=== PATIENT | male | born 1955 | race Caucasian/White ===

== ENCOUNTER 2020-05-29 13:49 | Outpatient (CLI) | payer MEDICARE, SELFPAY ==
--- NOTE | ~2020-05-29 | XR_ITS ---
EXAMINATION: XR chest 2V DATE: 05/29/2020 14:14 INDICATION: Shortness of breath and cough TECHNIQUE: PA and lateral views of the chest are obtained. COMPARISON: 07/01/2019 FINDINGS: There is stable cardiomegaly. Small pleural effusions are present. There is no pneumothorax . There are minimal airspace opacities of the lung bases. There is a questionable nodular density of the left costophrenic angle on the AP view. There is mild thoracic spondylosis. IMPRESSION: 1. Small pleural effusions with bibasilar airspace opacities, likely atelectasis. 2. Stable cardiomegaly. 3. Possible nodule at the left costophrenic angle. Recommend follow-up with nonemergent CT. Reviewed, dictated and finalized at location A. IMPRESSION: 1. Small pleural effusions with bibasilar airspace opacities, likely atelectasi s. 2. Stable cardiomegaly. 3. Possible nodule at the left costophrenic angle. Recommend follow-up with non emergent CT.
[2020-05-29 14:02] LABS: Basophils Absolute Auto 0.04 K/mm3 (0.00-0.10); Basophils Percent Auto 0.5 % (0.0-1.0); Eosinophils Absolute Auto 0.17 K/mm3 (0.02-0.50); Eosinophils Percent Auto 1.9 % (1.0-6.0); Hematocrit 42.2 % (37.0-46.0); Hemoglobin 13.8 g/dL (12.4-15.3); Immature Granulocyte Absolute 0.03 K/mm3 (0.00-0.00); Immature Granulocyte Percent A 0.3 % (0.0-0.0); Lymphocytes Absolute Auto 1.83 K/mm3 (1.10-4.50); Lymphocytes Percent Auto 20.6 % (18.0-42.0); Mean Corpuscular HGB Conc 32.7 g/dL (32.0-36.0); Mean Corpuscular Hemoglobin 29.9 pg (27.0-31.0); Mean Corpuscular Volume 91.3 fL (78.0-102.0); Mean Platelet Volume 10.9 fl (8.7-11.0); Monocytes Absolute Auto 0.98 K/mm3 (0.10-0.90); Neutrophils Absolute Auto 5.8 K/mm3 (1.7-7.2); Neutrophils Percent Auto 65.7 % (50.0-70.0); Platelet Count Result 214 K/mm3 (150-420); Red Blood Count 4.62 M/mm3 (4.70-6.10); Red Cell Distribution Width 12.9 % (11.6-14.4); White Blood Count 8.9 K/mm3 (4.8-10.8)
[2020-05-29 14:28] LABS: Alanine Aminotransferase 25 U/L (16-63); Albumin Level 3.9 g/dL (3.4-5.0); Alkaline Phosphatase 72 U/L (46-116); Anion Gap 8 mmol/L (8-16); Aspartate Amino Transferase 21 U/L (15-37); Bilirubin,Total 0.9 mg/dL (0.00-1.00); Blood Urea Nitrogen 20 mg/dL (7-18); Carbon Dioxide 26 mmol/L (21-32); Chloride 105 mmol/L (98-108); Estimated Glomerular Filt Rate > 60; Glucose 95 mg/dL (70-99); Osmolality Calculated 290 mOsm/kg (285-295); Potassium 4.2 mmol/L (3.5-5.1); Sodium 139 mmol/L (136-145); Total Protein 7.3 g/dL (6.4-8.2)
[2020-05-29 17:45] LABS: BNP 737 pg/mL (0-100)
== END 2020-05-29 13:50 | disposition home or self-care (01) ==
LOC: CHSLAB 13:53
PROVIDERS: PCP Internal Medicine; Visit Provider Internal Medicine
DX: R06.00 Dyspnea, unspecified (principal); R05 Cough
CPT/HCPCS: 36415; 71046; 80053; 83880; 85025

== ENCOUNTER 2020-05-30 13:13 | Outpatient (CLI) | payer MEDICARE, SELFPAY ==
--- NOTE | ~2020-05-30 | CT_ITS ---
EXAMINATION:CT chest w con DATE: 05/30/2020 14:07 INDICATION: Lung nodule. Pleural effusion. Dyspnea. TECHNIQUE: Computed tomography (CT) of the chest was performed with 75 mL Omnipaque 350 intravenous c ontrast. Automated exposure control and iterative reconstruction technique were employed. The dose-le ngth product (DLP) was 177.62 mGy-cm. COMPARISON: Chest 2 views 05/29/2020 FINDINGS: The lungs demonstrate mild atelectasis. There are small pleural effusions, right worse than left. There is no pulmonary embolus. A calcified left hilar lymph nodes consistent with old granulom atous disease. There is left atrial and left ventricular enlargement of the heart. No pericardial eff usion. There is mild thoracic spondylosis. There are old healed left rib fractures. IMPRESSION: 1. Small pleural effusions. 2. Cardiomegaly. 3. Old healed left rib fractures, which correlates with the abnormal chest radiograph finding. Reviewed, dictated and finalized at location A. IMPRESSION: 1. Small pleural effusions. 2. Cardiomegaly. 3. Old healed left rib fractures, which correlates with the abnormal chest radi ograph finding.
== END 2020-05-30 13:14 | disposition home or self-care (01) ==
LOC: CHSIMG 13:15
PROVIDERS: PCP Internal Medicine; Visit Provider Internal Medicine
DX: J90 Pleural effusion, not elsewhere classified (principal); R06.00 Dyspnea, unspecified; R91.8 Other nonspecific abnormal finding of lung field
CPT/HCPCS: 71260; Q9965

== ENCOUNTER 2020-05-31 10:17 | Outpatient (CLI) | payer MEDICARE, SELFPAY ==
--- NOTE | 2020-05-31 10:23 | ECHO_ITS ---
Patient Info Name: Naseem Granado Age: 64 years : 1955 Gender: Male Ht: 70 in Wt: 164 lbs BSA: 1.92 m2 HR: 89 bpm BP: 121 / 83 mmHg Technical Quality: Good Exam Date: 05/31/2020 11:18 AM Exam Location: [facility] [place] Patient Status: Outpatient Admit Date: 05/31/2020 Staff Ordering Physician: Addison Gar MD [facility] Teacher: Ghazala Borrego RDCS Attending Provider: Addison Gar MD Referring Physician: Cong THOMAS; Exam Type: CA echo doppler color flow Study Info Indications I50.30 - Unspecified diastolic (congestive) heart failure Complete two-dimensional, color flow and Doppler transthoracic echocardiogram is performed. Strain analysis performed. History/Risk Factors Hypertension: No Dyslipidemia: No Congenital Heart Disease (CHD): No Peripheral Arterial Disease (PAD): No Myocardial Infarction ([place]): No Chronic Lung Disease: No Obesity: No Renal Disease: No Coronary Artery Disease (CAD) No Congestive Heart Failure (CHF): Mild Cardiomyopathy/LV Systolic Dysfunction: Yes Diabetes Mellitus: No COPD: No Tobacco Use: Never Cerebrovascular Disease: No Family History: Coronary Artery Disease Deep Vein Thrombosis (DVT): None Dialysis: None Frailty Scale (CSHA): 1: Very Fit Cardiac Arrest: No Summary 1. Complete two-dimensional, color flow and Doppler transthoracic echocardiogram is performed. 2. Left ventricular chamber dimension is severely enlarged. 3. Left ventricular systolic function is severely reduced, estimated at <15%. 4. There is mildly increased left ventricular wall thickness. 5. Left ventricular septal wall motion is abnormal with septal motion related to bundle branch block. 6. The left ventricular diastolic function is abnormal. 7. E/e' 26 is significantly elevated. 8. Global longitudinal strain is abnormal at -1.2%. 9. Right ventricular systolic function is moderately reduced and with abnormal TAPSE 1.4 cm. 10. Right ventricular chamber dimension is mildly enlarged. 11. Left atrial chamber dimension is severely enlarged. 12. Right atrial chamber dimension is mildly enlarged. 13. There is severe mitral valve regurgitation. 14. There is mild tricuspid valve regurgitation. 15. Moderate pulmonary hypertension, estimated pulmonary arterial systolic pressure is 55 mmHg. 16. There is trace pulmonic regurgitation. Left Ventricle E/e' 26 is significantly elevated. Global longitudinal strain is abnormal at -1.2%. Left ventricular chamber dimension is severely enlarged. Left ventricular systolic function is severely reduced, estimated at <15%. There is mildly increased left ventricular wall thickness. Left ventricular septal wall motion is abnormal with septal motion related to bundle branch block. The left ventricular diastolic function is abnormal. Right Ventricle Right ventricular systolic function is moderately reduced and with abnormal TAPSE 1.4 cm. Right ventricular chamber dimension is mildly enlarged. Left Atria Left atrial chamber dimension is severely enlarged. Right Atria Right atrial chamber dimension is mildly enlarged. Aortic Valve The aortic valve is trileaflet. There is no aortic valve stenosis. There is no aortic valve regurgitation. Pulmonic Valve There is trace pulmonic regurgitation. Mitral Valve Dilated mitral annulus. There is no mitral valve stenosis. There is severe mitral valve regurgitation. Tricusp
== END 2020-05-31 10:18 | disposition home or self-care (01) ==
LOC: CHSIMG 10:20
PROVIDERS: PCP Internal Medicine; Visit Provider Internal Medicine
DX: I50.9 Heart failure, unspecified (principal)
CPT/HCPCS: 93306

== ENCOUNTER 2020-08-13 07:25 | Outpatient (CLI) | payer MEDICARE, SELFPAY ==
[2020-08-13 08:19] LABS: Anion Gap 5 mmol/L (8-16); Blood Urea Nitrogen 18 mg/dL (7-18); Calcium 9.3 mg/dL (8.5-10.1); Carbon Dioxide 31 mmol/L (21-32); Chloride 102 mmol/L (98-108); Estimated Glomerular Filt Rate 55; Glucose 94 mg/dL (70-99); Osmolality Calculated 287 mOsm/kg (285-295); Potassium 4.6 mmol/L (3.5-5.1); Sodium 138 mmol/L (136-145)
== END 2020-08-13 07:26 | disposition home or self-care (01) ==
PROVIDERS: PCP Internal Medicine; Visit Provider Internal Medicine Cardiovascular Disease
DX: Z79.899 Other long term (current) drug therapy (principal)
CPT/HCPCS: 36415; 80048

== ENCOUNTER 2020-08-21 07:59 | Outpatient (CLI) | payer MEDICARE, SELFPAY ==
[2020-08-21 08:40] LABS: Anion Gap 9 mmol/L (8-16); Blood Urea Nitrogen 19 mg/dL (7-18); Calcium 9.5 mg/dL (8.5-10.1); Carbon Dioxide 28 mmol/L (21-32); Chloride 101 mmol/L (98-108); Estimated Glomerular Filt Rate > 60; Glucose 100 mg/dL (70-99); Osmolality Calculated 288 mOsm/kg (285-295); Sodium 138 mmol/L (136-145)
== END 2020-08-21 08:00 | disposition home or self-care (01) ==
LOC: CHSLAB 08:01
PROVIDERS: PCP Internal Medicine; Visit Provider Internal Medicine Cardiovascular Disease
DX: I50.20 Unspecified systolic (congestive) heart failure (principal)
CPT/HCPCS: 36415; 80048

== ENCOUNTER 2020-09-27 17:11 | Emergency (ER) | payer MEDICARE, SELFPAY ==
--- NOTE | ~2020-09-27 | CT_ITS ---
EXAMINATION: CT abdomen pelvis wo con DATE: 09/27/2020 18:36 INDICATION: Hematuria TECHNIQUE: Computed tomography (CT) of the abdomen and pelvis was performed without intravenous contr ast. Automated exposure control and iterative reconstruction technique were employed. The dose-length product was 332.23 mGy-cm. COMPARISON: None FINDINGS: Mild bronchiectatic change at the lung bases are otherwise clear. Left ventricular hypertrophy. Cardi ac pacemaker/AICD leads with tips at the right atrial appendage, right ventricular outflow tract in a coronary vein overlying the lateral base of the left ventricle having traversed the coronary sinus. No pericardial or pleural effusion. Small sliding-type hiatal hernia versus wall thickening related t o esophagitis at the distalmost esophagus. Liver, gallbladder, spleen, pancreas, right kidney and bilateral adrenal glands are normal. Multiple parapelvic cysts in the left kidney. No urolithiasis or hydronephrosis. Bladder is normal. Bowels and appendix are normal. Small bilateral fat-containing inguinal hernias. No free intraperitoneal gas or fluid. No pathologically enlarged abdominal or pelvic lymphadenopathy. Degenerative skeletal changes with multilevel moderate lumbar facet osteoarthritis and mild disc height loss at L4-L5 and L5-S1. IMPRESSION: 1. Multiple left parapelvic cysts. No urolithiasis or hydronephrosis. 2. Small sliding-type hiatal hernia versus distal esophageal wall thickening which could be related t o reflux. 3. Left ventricular hypertrophy. Reviewed, dictated and finalized at location A. L ENGINE MECHANIC IMPRESSION: 1. Multiple left parapelvic cysts. No urolithiasis or hydronephrosis. 2. Small sliding-type hiatal hernia versus distal esophageal wall thickening wh ich could be related to reflux. 3. Left ventricular hypertrophy.
[2020-09-27 17:25] VITALS: BP 151/88; PULSE 86; RESP 20; TEMP 36.1; O2SAT 98
--- NOTE | 2020-09-27 17:55 | PC.NURSE ---
pt continues to attempt to urinate. water given to drink . pt states voided prior to coming to er.
[2020-09-27 18:03] LABS: Basophils Absolute Auto 0.05 K/mm3 (0.00-0.10); Basophils Percent Auto 0.6 % (0.0-1.0); Eosinophils Absolute Auto 0.21 K/mm3 (0.02-0.50); Eosinophils Percent Auto 2.4 % (1.0-6.0); Hematocrit 44.5 % (37.0-46.0); Hemoglobin 14.9 g/dL (12.4-15.3); Immature Granulocyte Absolute 0.04 K/mm3 (0.00-0.00); Immature Granulocyte Percent A 0.4 % (0.0-0.0); Lymphocytes Absolute Auto 2.21 K/mm3 (1.10-4.50); Lymphocytes Percent Auto 24.8 % (18.0-42.0); Mean Corpuscular HGB Conc 33.5 g/dL (32.0-36.0); Mean Corpuscular Volume 89.5 fL (78.0-102.0); Mean Platelet Volume 11.1 fl (8.7-11.0); Monocytes Absolute Auto 0.73 K/mm3 (0.10-0.90); Monocytes Percent Auto 8.2 % (2.0-11.0); Neutrophils Absolute Auto 5.7 K/mm3 (1.7-7.2); Neutrophils Percent Auto 63.6 % (50.0-70.0); Platelet Count Result 229 K/mm3 (150-420); Red Blood Count 4.97 M/mm3 (4.70-6.10); White Blood Count 8.9 K/mm3 (4.8-10.8)
[2020-09-27 18:18] LABS: Alanine Aminotransferase 18 U/L (16-63); Albumin Level 4.1 g/dL (3.4-5.0); Alkaline Phosphatase 79 U/L (46-116); Anion Gap 7 mmol/L (8-16); Aspartate Amino Transferase 32 U/L (15-37); Bilirubin,Total 0.5 mg/dL (0.00-1.00); Blood Urea Nitrogen 19 mg/dL (7-18); Calcium 9.2 mg/dL (8.5-10.1); Carbon Dioxide 30 mmol/L (21-32); Chloride 100 mmol/L (98-108); Estimated CRCL calculation 60 ml/min; Estimated Glomerular Filt Rate > 60; Glucose 154 mg/dL (70-99); Osmolality Calculated 289 mOsm/kg (285-295); Partial Thromboplastin Time 28.5 SEC (23.90-30.70); Potassium 3.7 mmol/L (3.5-5.1); Prothrombin Time 10.9 Seconds (9.50-12.10); Sodium 137 mmol/L (136-145)
[2020-09-27 18:21] LABS: Add Urine Microscopic? YES; Bilirubin Urine 2+ (Negative); Blood Urine 3+ (Negative); Glucose Urine UA Negative (Negative); Ketones Urine Trace (Negative); Leukocyte Esterase Ur Negative (Negative); Nitrate Urine Positive (Negative); Protein Urine 3+ (Negative); Specific Grav Ur >= 1.030 (1.010-1.020); Urobilinogen Urine 0.2 mg/dL (0.2-1.0); pH Urine 6.5 (5.0-8.0)
[2020-09-27 18:24] LABS: Appearance Urine Cloudy (Clear); Color Urine Dark Red (Yellow)
[2020-09-27 18:25] LABS: Bacteria Urine 3+ /hpf; RBC Urine >75 /hpf (0-2); WBC Urine >75 /hpf (0-3)
[2020-09-27] MEDS: cefTRIAXone 1 GM VIAL IM (19:18)
--- NOTE | 2020-09-27 19:20 | ED.MALEGU ---
HPI - Male Genitourinary General Chief complaint: Urogenital-Male Stated complaint: urinating blood Source: patient and family Mode of arrival: ambulatory Limitations: no limitations History of Present Illness HPI Narrative: this is a 64-year-old gentleman that presents to the emergency department with an episode of hematuria had some small clots started earlier today with no flank pain no abdominal pain no fever chills, patient denies dysuria does have some urinary frequency, no fever chills, no nausea vomiting no chest pain or shortness of breath. Patient has never had an episode of hematuria, recent pacemaker placed has a history of CHF above currently not on any blood thinners or aspirin. Complaint: other ( hematuria) Onset (ago): hour(s) Duration: intermittent Relieving factors: none Exacerbating factors: none Related Data Home Medications Medication Instructions Recorded Confirmed metoprolol succinate 12.5 mg PO DAILY 09/27/20 09/27/20 sacubitril-valsartan [Entresto] 0.5 tablet PO BID 09/27/20 09/27/20 spironolactone 12.5 mg PO DAILY 09/27/20 09/27/20 Allergies Allergy/AdvReac Type Severity Reaction Status Date / Time No Known Allergies Allergy Verified 09/27/20 17:29 Review of Systems Review of Systems: All systems reviewed & are unremarkable except as noted in HPI and below PMFSH Past Medical History Medical History CHF (congestive heart failure) Social History Social History Gender identity (if verbalized by the patient): Male Exam Const: General: no acute distress and alert HENMT: Head: normal to inspection Eyes: Conjunctivae: conjunctivae normal Pupils: Equal, round and reactive pupils present Neck: Neck: normal visual inspection, no lymphadenopathy and no meningeal signs Resp: Effort & Inspection: normal respiratory effort Auscultation: clear to auscultation bilaterally Cardio: Rate: regular rate Rhythm: regular rhythm GI: Inspection: distended GI Palp: Yes Soft to palpation Percussion: Yes normal to percussion : General: Yes no CVA tenderness Testes: Testes normal Urinary Catheter: Urinary Catheter: patent and draining and urine red Back/Spine/Pelvis: Back: no CVA tenderness Skin: General skin exam: normal color Rashes: no rashes Neuro: General: patient oriented x3, moves all extremities and no meningeal signs Extrem: General: normal to inspection and no pedal edema Psych: Mental Status: mental status grossly normal Course Course Emergency Course: reassessment of patient, but continues to be comfortable with no abdominal pain no suprapubic tenderness no flank pain, reviewed CT scan and laboratory findings with the patient and urinalysis did show urinary tract infection will administer 1 g IM ceftriaxone and sent antibiotics to his pharmacy. Vital Signs Vital signs: Vital Signs Temperature 36.1 C L 09/27/20 17:25 Pulse Rate 86 09/27/20 17:25 Respiratory Rate 20 09/27/20 17:25 Blood Pressure 151/88 H 09/27/20 17:25 Pulse Oximetry 98 09/27/20 17:25 Temperature 36.1 C L 09/27/20 17:25 Pulse Rate 86 09/27/20 17:25 Respiratory Rate 20 09/27/20 17:25 Blood Pressure 151/88 H 09/27/20 17:25 Pulse Oximetry 98 09/27/20 17:25 MDM - Male Genitourinary Lab Data Result diagrams: 09/27/20 17:59 09/27/20 17:59 Labs: Lab Results 09/27/20 09/27/20 09/27/20 Range/Units 17:59 17:59 17:59 WBC 8.9 (4.8-10.8) K/mm3 RBC 4.97 (4.70-6.10) M/mm3 Hgb 14.9 (12.4-15.3) g/dL Hct 44.5 (37.0-46.0) % MCV 89.5 (78.0-102.0) fL MCH 30.0 (27.0-31.0) pg MCHC 33.5 (32.0-36.0) g/dL RDW 13.0 (11.6-14.4) % Plt Count 229 (150-420) K/mm3 MPV 11.1 H (8.7-11.0) fl Immature Gran % (Auto) 0.4 H (0.0-0.0) % Neut % (Auto) 63.6 (50.0-70.0) % Lymph % (Auto) 24.8
[2020-09-27 19:33] VITALS: BP 151/88; PULSE 84; RESP 20; TEMP 35.5; O2SAT 98
== END 2020-09-27 19:43 | disposition home or self-care (01) ==
PROVIDERS: Emergency Provider Emergency Medicine; PCP Internal Medicine
DX: N39.0 Urinary tract infection, site not specified (principal)
CPT/HCPCS: 36415; 74176; 80053; 81001; 85025; 85610; 85730; 96372; 99283; 99284; J0696

== ENCOUNTER 2020-12-17 07:21 | Outpatient (CLI) | payer MEDICARE, SELFPAY ==
[2020-12-17 08:09] LABS: Anion Gap 5 mmol/L (8-16); Blood Urea Nitrogen 18 mg/dL (7-18); Calcium 8.7 mg/dL (8.5-10.1); Carbon Dioxide 29 mmol/L (21-32); Chloride 103 mmol/L (98-108); Estimated Glomerular Filt Rate > 60; Glucose 90 mg/dL (70-99); Osmolality Calculated 285 mOsm/kg (285-295); Potassium 4.2 mmol/L (3.5-5.1); Sodium 137 mmol/L (136-145)
== END 2020-12-17 07:22 | disposition home or self-care (01) ==
LOC: CHSLAB 07:24
PROVIDERS: PCP Internal Medicine; Visit Provider Internal Medicine Cardiovascular Disease
DX: Z79.899 Other long term (current) drug therapy (principal)
CPT/HCPCS: 36415; 80048

== ENCOUNTER 2022-01-15 09:50 | Outpatient (CLI) | payer MEDICARE, SELFPAY ==
[2022-01-15 11:32] LABS: Basophils Absolute Auto 0.05 K/mm3 (0.00-0.10); Basophils Percent Auto 0.7 % (0.0-1.0); Eosinophils Absolute Auto 0.29 K/mm3 (0.02-0.50); Eosinophils Percent Auto 3.8 % (1.0-6.0); Hematocrit 41.7 % (37.0-46.0); Hemoglobin 13.8 g/dL (12.4-15.3); Immature Granulocyte Absolute 0.04 K/mm3 (0.00-0.00); Immature Granulocyte Percent A 0.5 % (0.0-0.0); Lymphocytes Absolute Auto 2.05 K/mm3 (1.10-4.50); Mean Corpuscular HGB Conc 33.1 g/dL (32.0-36.0); Mean Corpuscular Hemoglobin 30.7 pg (27.0-31.0); Mean Corpuscular Volume 92.7 fL (78.0-102.0); Mean Platelet Volume 11.6 fl (8.7-11.0); Monocytes Absolute Auto 0.94 K/mm3 (0.10-0.90); Monocytes Percent Auto 12.4 % (2.0-11.0); Neutrophils Absolute Auto 4.2 K/mm3 (1.7-7.2); Neutrophils Percent Auto 55.6 % (50.0-70.0); Platelet Count Result 182 K/mm3 (150-420); Red Cell Distribution Width 12.7 % (11.6-14.4); White Blood Count 7.6 K/mm3 (4.8-10.8)
[2022-01-15 11:36] LABS: Alanine Aminotransferase 26 U/L (16-63); Alkaline Phosphatase 75 U/L (46-116); Anion Gap 8 mmol/L (8-16); Aspartate Amino Transferase 25 U/L (15-37); Blood Urea Nitrogen 26 mg/dL (7-18); Calcium 8.9 mg/dL (8.5-10.1); Carbon Dioxide 27 mmol/L (21-32); Chloride 99 mmol/L (98-108); Cholesterol 178 mg/dL (0-200); Estimated Glomerular Filt Rate > 60; Glucose 88 mg/dL (70-99); HDL Direct 66 mg/dL (40-60); LDL Cholesterol Calculated 97 mg/dL (<130); Osmolality Calculated 281 mOsm/kg (285-295); Potassium 4.3 mmol/L (3.5-5.1); Sodium 134 mmol/L (136-145); Total Protein 7.3 g/dL (6.4-8.2); Triglycerides 77 mg/dL (0-150)
== END 2022-01-15 09:51 | disposition home or self-care (01) ==
LOC: CHSLAB 09:54
PROVIDERS: PCP Internal Medicine; Visit Provider Specialist
DX: E78.5 Hyperlipidemia, unspecified (principal); I10 Essential (primary) hypertension
CPT/HCPCS: 36415; 80053; 80061; 85025

== ENCOUNTER 2022-02-07 13:16 | Outpatient (CLI) | payer MEDICARE, SELFPAY ==
--- NOTE | 2022-02-07 14:24 | ECHO_ITS ---
Patient Info Name: Naseem Granado Age: 66 years : 1955 Gender: Male Ht: 70 in Wt: 172 lbs BSA: 1.97 m2 HR: 62 bpm BP: 135 / 77 mmHg Technical Quality: Good Exam Date: 02/07/2022 1:33 PM Exam Location: [facility] Patient Status: Outpatient Admit Date: 02/07/2022 Staff Ordering Physician: Addison Gar MD Passenger Booking Clerk: Oj Escobar RDCS, RT Attending Provider: Addison Gar MD Referring Physician: Cong THOMAS; Exam Type: CA echo doppler color flow Study Info Indications I50.9 - Heart failure, unspecified Complete two-dimensional, color flow and Doppler transthoracic echocardiogram is performed. Strain analysis performed. History/Risk Factors Hypertension: No Dyslipidemia: No Congenital Heart Disease (CHD): No Peripheral Arterial Disease (PAD): No Myocardial Infarction ([place]): No Chronic Lung Disease: No Obesity: No Renal Disease: No Coronary Artery Disease (CAD) No Congestive Heart Failure (CHF): Mild Cardiomyopathy/LV Systolic Dysfunction: Yes Diabetes Mellitus: No COPD: No Tobacco Use: Never Cerebrovascular Disease: No Family History: Coronary Artery Disease Deep Vein Thrombosis (DVT): None Dialysis: None Frailty Scale (CSHA): 1: Very Fit Cardiac Arrest: No Summary 1. Complete two-dimensional, color flow and Doppler transthoracic echocardiogram is performed. 2. Left ventricular chamber dimension is severely enlarged. 3. Left ventricular systolic function is severely reduced, estimated at 25-30%. 4. There is mildly increased left ventricular wall thickness. 5. The left ventricular diastolic function is grade I diastolic dysfunction. 6. E/e' 8 is minimally elevated. 7. Global longitudinal strain is abnormal at -9.3%. 8. Linear artifact in right ventricle suggestive of catheter(s), pacemaker lead(s), or ICD lead(s). 9. Left atrial chamber dimension is mildly enlarged. 10. Linear artifact in the right atrium suggestive of catheter(s), pacemaker lead(s), or ICD lead(s). 11. There is mild aortic valve sclerosis. 12. The mitral valve has mildly calcified annulus. 13. There is moderate mitral valve regurgitation. Left Ventricle E/e' 8 is minimally elevated. Global longitudinal strain is abnormal at -9.3%. Left ventricular chamber dimension is severely enlarged. Left ventricular systolic function is severely reduced, estimated at 25-30%. There is mildly increased left ventricular wall thickness. The left ventricular diastolic function is grade I diastolic dysfunction. Right Ventricle Linear artifact in right ventricle suggestive of catheter(s), pacemaker lead(s), or ICD lead(s). Right ventricular systolic function is normal and with normal TAPSE 1.8 cm. Right ventricular chamber dimension is normal. Left Atria Left atrial chamber dimension is mildly enlarged. Right Atria Linear artifact in the right atrium suggestive of catheter(s), pacemaker lead(s), or ICD lead(s). Right atrial chamber dimension is normal. Aortic Valve The aortic valve is trileaflet. There is mild aortic valve sclerosis. There is no aortic valve stenosis. There is no aortic valve regurgitation. Pulmonic Valve There is no pulmonic regurgitation. Mitral Valve The mitral valve has mildly calcified annulus. There is no mitral valve stenosis. There is moderate mitral valve regurgitation. Tricuspid Valve There is no tricuspid valve regurgitation. Pericardium
== END 2022-02-07 13:17 | disposition home or self-care (01) ==
LOC: CHSIMG 13:18
PROVIDERS: PCP Internal Medicine; Visit Provider Internal Medicine
DX: I50.9 Heart failure, unspecified (principal)
CPT/HCPCS: 93306